=== PATIENT | female | born 1985 | race Caucasian/White ===

== ENCOUNTER → 2016-09-25 | Outpatient (CLI) | payer OTHER | LOC: KOH-I 15:00 | DX: M79.605 Pain in left leg (principal) | CPT/HCPCS: 93971 ==

== ENCOUNTER → 2020-09-03 | Outpatient (CLI) | payer OTHER | LOC: CT 14:30 | DX: R59.0 Localized enlarged lymph nodes (principal) | CPT/HCPCS: 70491; Q9963 ==